=== PATIENT | female | born 1955 | race Caucasian/White ===

== ENCOUNTER → 2017-09-18 | Outpatient (CLI) | payer OTHER ==
[~2017-09-18] MED LIST: CELE200; METF500 PO; OXYACE5T PO
== END | disposition home or self-care (01) ==
LOC: LAB SHORT 17:55 → LAB EV 17:55
DX: J02.9 Acute pharyngitis, unspecified (principal)
CPT/HCPCS: 87070

== ENCOUNTER 2022-09-08 10:30 | Day surgery (SDC) | payer BC ==
[2022-09-08] VITALS (10 sets, daily range): BP systolic 136–168; BP diastolic 76–89
[~2022-09-08] VITALS: Ht 182.9 cm; Wt 95.0 kg
--- NOTE | 2022-09-08 12:03 | NUR ---
Patient up to Ambulate independently. Gait steady. History, Chart, Medications and Allergies reviewed before start of procedure. Lungs clear T/O to Auscultation. Pre-Op teaching done. Pt verbalizes understanding. Patient confirms NPO status and agrees with scheduled surgery. Patient States Post-Procedure ride home has been arranged.
--- NOTE | 2022-09-08 14:03 | NUR ---
REPORT RECEIVED FROM AMITA LANDRY. VSS. PT ABLE TO REPOSITION SELF IN BED. PT DENIES PAIN OR DISCOMFORT AT THIS TIME. PT REQUESTING PO FLUIDS AND TOLERATING THEM WELL.
--- NOTE | 2022-09-08 14:32 | NUR ---
Patient up to Ambulate independently. Gait steady. VSS AND CONSISTENT WITH PT BASELINE. PT DENIES PAIN OR DISCOMFORT. Discharge instructions reviewed with patient. Patient verbalizes understanding. Copy given to patient to take home. Patient States Post-Procedure ride home has been arranged. Discharged via wheelchair to private car for ride home. PT BELONGINGS RETURNED TO PT.
== END 2022-09-08 14:34 | disposition home or self-care (01) ==
LOC: ORSCMMR 10:30 → ORD 09-15 08:00
PROVIDERS: Surgery
PROC: 0DBQ7ZX Excision of Anus, Via Natural or Artificial Opening, Diagnostic (ICD-10-PCS; principal; 2022-09-08 12:30)
DX: C21.1 Malignant neoplasm of anal canal (principal); K62.89 Other specified diseases of anus and rectum; E11.9 Type 2 diabetes mellitus without complications; Z79.84 Long term (current) use of oral hypoglycemic drugs
CPT/HCPCS: 82947; 88305; 88342; J2250; J2704; J2795; J3010; J7120